=== PATIENT | male | born 1975 | race Caucasian/White ===

== ENCOUNTER 2018-03-31 00:47 | Emergency (ER) | payer BC, OTHER ==
[~2018-03-31] VITALS: Ht 165.1 cm; Wt 105.2 kg
[~2018-03-31 00:47] MED LIST: BENADRYL50 MG ORAL; OMEPRAZOLE10 M1 ORAL; PREDNISONE50 MG ORAL; SYMBICORT2 PUFF1 INH
[2018-03-31 01:00] VITALS: BP 149/99
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
[2018-03-31] MEDS ORDERED: Norco 5mg/325mg tab ORAL ONE (01:15)
[2018-03-31] MEDS ORDERED: Tetanus/Diptheria/Pertussis Vaccine 0.5ml Syr IM ONE (01:15)
[2018-03-31 01:30] LABS: BASOPHILS % (AUTO) 1.4 % (0.0-2.0); EOSINOPHILS % (AUTO) 3.2 % (0.0-3.0); HEMATOCRIT 46.1 % (42.0-52.0); HEMOGLOBIN 16.5 G/DL (14.2-18.0); MEAN CORPUSCULAR VOLUME 84 FL (80-99); MONOCYTES % (AUTO) 7.3 % (1.0-10.0); NEUTROPHILS % (AUTO) 51.2 % (45.0-75.0); PLATELET COUNT 184 K/UL (150-450); RED BLOOD COUNT 5.49 M/UL (4.70-6.10); RED CELL DISTRIBUTION WIDTH 11.4 % (11.6-14.8); WHITE BLOOD COUNT 7.3 K/UL (4.8-10.8)
[2018-03-31 01:38] LABS: ANION GAP 2 mmol/L (5-15); BLOOD UREA NITROGEN 13 mg/dL (7-18); CALCIUM 7.9 MG/DL (8.5-10.1); CARBON DIOXIDE 32 MMOL/L (21-32); CHLORIDE 97 MMOL/L (98-107); CREATININE 1.2 MG/DL (0.55-1.30); POTASSIUM 3.6 MMOL/L (3.5-5.1); SODIUM 131 MMOL/L (136-145)
[2018-03-31] MEDS ORDERED: HYDROCODON-ACE1 EA15 ORAL (02:56)
[2018-03-31] MEDS ORDERED: METFORMIN HCL500 M1 ORAL (02:56)
[2018-03-31] MEDS ORDERED: IBUPROFEN600 MG ORAL (02:56)
[2018-03-31 03:10] VITALS: BP 150/99
--- NOTE | 2018-03-31 10:05 | Diagnostic Imaging Report ---
Indication: Abdominal pain Technique: Continuous helical transaxial imaging of the abdomen and pelvis was obtained from the lung bases to the pubic symphysis. No intravenous contrast was administered. Coronal 2-D reformats were also obtained. Automatic Exposure Control was utilized. Total Dose length Product (DLP): 958.[address] Dose Index Volume (CTDIvol): 18.16 mGy Comparison: none Findings: Lung bases are clear. Evaluation of solid organs limited on this study done without IV contrast. No nephrolithiasis or hydronephrosis seen. The appendix is normal. There is no free fluid. Bladder is unremarkable. No evidence of bowel obstruction. IMPRESSION: No acute findings appreciated with limitations as discussed. [facility] has communicated the preliminary results to the Emergency Department. Their findings are largely concordant with this report. The CT scanner at [facility] is accredited by the [employer] and the scans are performed using dose optimization techniques as appropriate to a performed exam including Automatic Exposure control.
--- NOTE | 2018-03-31 10:55 | Diagnostic Imaging Report ---
Indication: Headache and trauma. Technique: Contiguous 5 mm thick transaxial imaging of the head obtained in a Siemens Sensation [address] scanner. Soft tissue and bone windows generated. Automatic Exposure Control was utilized. Total Dose length Product (DLP): 1421.[address] Dose Index Volume (CTDIvol): 70.38 mGy Comparison: none Findings: The size and configuration of the cortical sulci, basal cisterns, and ventricles are within normal limits for age. There is no mass effect, midline shift, or edema identified. There is no evidence of acute hemorrhage or abnormal intra-axial or extra-axial fluid collections. There is a fracture of the frontal process of the right maxilla on the right side. There is soft tissue swelling of the nose as well as a frontal and right periorbital soft tissue swelling. Impression: No mass effect, edema or acute bleed. Right frontal process fracture and soft tissue contusion injury. [facility] has communicated the preliminary results to the Emergency Department. Their findings are largely concordant with this report. The CT scanner at [facility] is accredited by the [employer] and the scans are performed using dose optimization techniques as appropriate to a performed exam including Automatic Exposure control.
== END 2018-03-31 03:10 | disposition home or self-care (01) ==
LOC: EMR 01:18
DX: S02.30XA Fracture of orbital floor, unspecified side, initial encounter for closed fracture (principal); S02.2XXA Fracture of nasal bones, initial encounter for closed fracture; S30.1XXA Contusion of abdominal wall, initial encounter; S09.90XA Unspecified injury of head, initial encounter; V98.8XXA Other specified transport accidents, initial encounter; Z23 Encounter for immunization; E11.65 Type 2 diabetes mellitus with hyperglycemia; E66.01 Morbid (severe) obesity due to excess calories; I10 Essential (primary) hypertension; K21.9 Gastro-esophageal reflux disease without esophagitis
CPT/HCPCS: 36415; 70450; 74176; 80048; 85025; 90471; 90715; 99284

== ENCOUNTER 2018-04-02 19:30 | Emergency (ER) | payer OTHER ==
[~2018-04-02] VITALS: Ht 165.1 cm; Wt 105.2 kg
[~2018-04-02 19:30] MED LIST changes: +HYDROCODON-ACE1 EA15 ORAL; +IBUPROFEN600 MG ORAL; +METFORMIN HCL500 M1 ORAL
[2018-04-02 20:00] VITALS: BP 156/96
[2018-04-02] MEDS ORDERED: Acetaminophen 500mg (ES) tab ORAL ONE (20:00)
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
[2018-04-02] MEDS ORDERED: TRAMADOL HCL50 MG ORAL (21:18)
[2018-04-02] MEDS ORDERED: TYLENOL325 MG ORAL (21:18)
[2018-04-02] MEDS ORDERED: BLOOD LANCETS1 EACH MC (21:20)
[2018-04-02 21:27] VITALS: BP 156/96
[2018-04-02] MEDS ORDERED: AMOXICILLIN500 MG ORAL (21:27)
== END 2018-04-02 21:27 | disposition home or self-care (01) ==
LOC: EMR 20:06
DX: H11.31 Conjunctival hemorrhage, right eye (principal); S02.31XD Fracture of orbital floor, right side, subsequent encounter for fracture with routine healing; S30.1XXD Contusion of abdominal wall, subsequent encounter; I10 Essential (primary) hypertension; E11.65 Type 2 diabetes mellitus with hyperglycemia; K59.00 Constipation, unspecified; Z91.14 Patient's other noncompliance with medication regimen; Z79.84 Long term (current) use of oral hypoglycemic drugs
CPT/HCPCS: 82962; 99283

== ENCOUNTER 2018-04-14 18:26 | Emergency (ER) | payer OTHER ==
[~2018-04-14] VITALS: Ht 165.1 cm; Wt 105.2 kg
[~2018-04-14 18:26] MED LIST changes: +AMOXICILLIN500 MG ORAL; +BLOOD LANCETS1 EACH MC; +TRAMADOL HCL50 MG ORAL; +TYLENOL325 MG ORAL
[2018-04-14 19:07] VITALS: BP 145/89
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
[2018-04-14 21:08] VITALS: BP 145/89
--- NOTE | 2018-04-15 11:24 | Diagnostic Imaging Report ---
Indication: Pain Technique: One view of the chest, 6 views of the right ribs Comparison: none Findings: Lungs and pleural spaces are clear. No pneumothorax demonstrated. No acute fractures. Impression: Negative This agrees with the preliminary interpretation provided overnight by [facility].
--- NOTE | 2018-04-15 15:02 | Cardiology Report ---
APPROVED REPORT EKG Measurement Heart [id number] Sinus tachycardia Otherwise normal ECG
== END 2018-04-14 21:10 | disposition home or self-care (01) ==
LOC: EMR 20:59
DX: R07.81 Pleurodynia (principal); R00.0 Tachycardia, unspecified; E11.9 Type 2 diabetes mellitus without complications; I10 Essential (primary) hypertension; J44.9 Chronic obstructive pulmonary disease, unspecified; K21.9 Gastro-esophageal reflux disease without esophagitis
CPT/HCPCS: 93005; 99283